=== PATIENT | male | born 1990 | race Caucasian/White ===

== ENCOUNTER 2022-12-06 12:13 | Outpatient (CLI) | payer OTHER, SELFPAY ==
[2022-12-06 13:22] LABS: Anion Gap 9 mmol/L (8-16); Blood Urea Nitrogen 11 mg/dL (9-20); Calcium 9.4 mg/dL (8.4-10.2); Carbon Dioxide 29 mmol/L (22-30); Chloride 103 mmol/L (98-107); Estimated Glomerular Filt Rate > 60; Glucose 103 mg/dL (65-110); Potassium 3.9 mmol/L (3.4-5.0); Sodium 141 mmol/L (137-145)
[2022-12-06 14:03] LABS: Vitamin D 25 Hydroxy 24.7 ng/mL
[2022-12-10 17:50] LABS: Testosterone Free 43.6 pg/mL (35.0-155.0); Testosterone Total 261 ng/dL (250-1100)
== END 2022-12-06 12:14 | disposition home or self-care (01) ==
LOC: ANHLAB 12:15
PROVIDERS: PCP Family Medicine; Visit Provider Nurse Practitioner Family
DX: F41.9 Anxiety disorder, unspecified (principal); F32.A Depression, unspecified; R53.83 Other fatigue; E55.9 Vitamin D deficiency, unspecified; R41.9 Unspecified symptoms and signs involving cognitive functions and awareness
CPT/HCPCS: 36415; 80048; 82306; 84402; 84403; 84443

== ENCOUNTER 2022-12-15 11:30 | Outpatient (CLI) | payer OTHER, SELFPAY ==
[2022-12-18 13:41] LABS: Testosterone Free 80.3 pg/mL (35.0-155.0); Testosterone Total 481 ng/dL (250-1100)
== END 2022-12-15 11:31 | disposition home or self-care (01) ==
LOC: ANHLAB 11:31
PROVIDERS: PCP Family Medicine; Visit Provider Nurse Practitioner Family
DX: R79.89 Other specified abnormal findings of blood chemistry (principal)
CPT/HCPCS: 36415; 84402; 84403

== ENCOUNTER 2022-12-27 08:21 | Outpatient (CLI) | payer OTHER, SELFPAY ==
--- NOTE | 2023-01-16 05:26 | WPDHOMESLEEP ---
Sleep Study - Home Unattended Date of Study: 12/27/22 Ordering Provider: Avery Rock MD Interpreting Provider: Gloria Gatica MD Home Sleep Study Type: Watch PAT Height: 1.91 m Weight: 131.542 kg Body Mass Index: 36.2 Neck Circumference (inches): 18 [place]: 4 Reason for Sleep Study Snoring, daytime hypersomnia; high blood pressure, chest pains and throat pains Sleep History Manjinder Joel is a 32-year-old male with history of depression, anxiety and elevated blood pressure readings who underwent a home sleep test for evaluation of snoring and daytime hypersomnia. 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 He occasionally awakens from sleep short of breath. He rarely awakens at night with heartburn, belching or cough. He frequently snores and snores loud enough for others to complain. He occasionally has trouble sleeping when he has a cold. He occasionally wakes up gasping for breath during the night. He occasionally has breathing problems at night. He frequently sweats excessively at night. He rarely falls asleep during the day. He does not fall asleep involuntarily and never falls asleep while driving. He rarely notices his heart pounding or beating irregularly during the night. He never experiences loss of muscle tone with strong emotion. He rarely feels paralyzed on waking or falling asleep. He frequently experiences vivid dreams upon waking or falling asleep. He occasionally feels afraid of going to sleep. He occasionally has nightmares. He frequently recalls his dreams. He constantly has thoughts racing through his mind. He constantly feels sad or depressed. He constantly feels anxiety or worry about things. He occasionally has muscular tension. He occasionally notices parts of his body jerk. He rarely kicks during the night. He never feels crawling or aching feelings in his legs. He never feels leg pain at night. He does not grind his teeth during sleep and never has morning jaw pain. He constantly feels bothered by pain during the day and is frequently awakened by pain during the night. He frequently wakes up feeling stiff in the morning and frequently wakes up feeling sore and achy in the morning with pain in his neck, spine, or joints. He has anxiety, depression, allergies, sinus issues and throat problems. His main health concern is constant sensation of something in his throat along with back pains and chest pains. He has seen ENT, and has had a tonsillectomy. Normal bedtime varies. He typically gets about 6 to 8 hours of sleep per night. His wake up time is around 9 to 10am on the weekdays and same on the weekends. He typically wakes up around 2 to 3 times per night. He watches television before falling asleep. He does not take naps. A short nap is not refreshing. He is drowsy for 3 hours or longer after waking. Habits: Current tobacco smoker, less than a half pack per day. Drinks 1 caffeinated beverage per day. No alcohol or recreational substances. [facility] Past Medical History Medical History Anxiety disorder, unspecified Apnea BMI 36.0-36.9,adult BMI 39.0-39.9,adult Chest pain Skin lesion of neck Family History Family History Grandparent Family history of malignant neoplasm of breast Family history of heart disease in male family member before age 55 Diabetes mellitus Other Family history of malignant neoplasm Family history of malignant neoplasm of testis Social History Social History Smoking status: Former smoker Alcohol intake: current Medications Home Medications Medication Instructions Recorded Confirmed Type alprazolam 0.25 mg tablet 0.25 mg PO DAILY PRN panic attacks 12/06/22 01/10/23 Rx #20 tabs omeprazole 40 mg capsule,delayed 40 mg PO DAILY 12/06/22 01/10/23 History release bupropion HCl 150 mg 24 h
[2023-01-16 05:55] VITALS: BMI 36.2
== END 2022-12-28 11:52 | disposition home or self-care (01) ==
LOC: ANHCSM 08:22
PROVIDERS: PCP Family Medicine; Visit Provider Family Medicine
DX: R06.81 Apnea, not elsewhere classified (principal); R06.83 Snoring
CPT/HCPCS: 95800

== ENCOUNTER 2024-06-05 13:23 | Outpatient (CLI) | payer OTHER, SELFPAY ==
[2024-06-05 13:55] LABS: Basophils Absolute Auto 0.1 K/mm3 (0.0-0.1); Basophils Percent Auto 0.7 % (0.2-1.2); Eosinophils Absolute Auto 0.2 K/mm3 (0-0.3); Eosinophils Percent Auto 2.1 % (0-4.4); Hematocrit 46.6 % (42.0-52.0); Hemoglobin 15.4 g/dL (14.0-18.0); Immature Granulocyte Absolute 0.03 K/mm3 (0.00-0.031); Immature Granulocyte Percent A 0.4 % (0-0.5); Lymphocytes Absolute Auto 3.08 K/mm3 (0.9-3.2); Lymphocytes Percent Auto 40.5 % (18.3-44.2); Mean Corpuscular Hemoglobin 29.9 pg (26-34); Mean Corpuscular Volume 90.5 fl (80-100); Mean Platelet Volume 9.2 fl (7.4-10.4); Monocytes Absolute Auto 0.6 K/mm3 (0.1-0.6); Monocytes Percent Auto 7.6 % (2.6-8.5); Neutrophils Absolute Auto 3.7 K/mm3 (1.3-6.7); Neutrophils Percent Auto 48.7 % (45.5-73.1); Platelet Count Result 301 k/mm3 (150-375); Red Blood Count 5.15 M/mm3 (4.6-6.20); Red Cell Distribution Width 12.7 % (11.5-14.5); White Blood Count 7.6 K/mm3 (4.5-10.0)
[2024-06-05 14:13] LABS: Alanine Aminotransferase 34 U/L (6-50); Albumin Level 4.6 g/dL (3.5-5.1); Alkaline Phosphatase 56 U/L (38-126); Anion Gap 10 mmol/L (4-12); Aspartate Amino Transferase 23 U/L (17-59); Bilirubin,Total 0.7 mg/dL (0.2-1.3); Blood Urea Nitrogen 17 mg/dL (9-20); Calcium 9.4 mg/dL (8.4-10.2); Carbon Dioxide 30 mmol/L (22-30); Chloride 102 mmol/L (98-107); Cholesterol 212 mg/dL (0-200); Estimated Glomerular Filt Rate > 60; Glucose 95 mg/dL (65-110); HDL Direct 43 mg/dL; Sodium 142 mmol/L (137-145); Triglycerides 248 mg/dL (<150)
[2024-06-05 14:24] LABS: LDL Cholesterol Direct 115 mg/dL
--- OUTSIDE RECORDS SUMMARY | 2024-06-05 14:31 | XMS_ITS | Clinical Summary ---
Author Organization [facility] Address [address] [place] [address] Care Team Providers Care Corn Sheller Operator Name Role Phone Unavailable Primary Care Provider Unavailabl e Source Comments [facility],non-owned Affiliates and Associated Physician Practices is amultiple site organization consisting of ambulatory clinics and hospital sitesin [place], [place], [place] and [place]. This disclosure is being madepursuant to the Care Everywhere program and may not contain all information available regarding this patient. Last updated 17.[facility] [employer] Social History Tobacco Use Types Packs/Day Years Used Date Smoking Tobacco: Never Assessed Sex and Gender Information Value Date Recorded Sex Assigned at Not on file Gender Identity Not on file Sexual Orientation Not on file Plan of Treatment Health Maintenance Due Date Last Done Comments HIV SCREENING 07/23/2006 HEPATITIS C SCREENING 07/19/2009 DTAP/TDAP/TD VACCINES (1 - Tdap) 07/23/2010 HEPATITIS B VACCINE (1 of 3 - 19+ 3-dose series) 07/23/2010 COVID-19 VACCINE ( - 2023-2 5 season) 2023 INFLUENZA VACCINE (#1) 2023 DEPRESSION SCREENING 03/07/2024 ZOSTER VACCINE (1 of 2) 07/23/2041 HIB VACCINE Aged Out No longer eligi ble based on patient's age to complete this topic HPV VACCINE Aged Out No longer eligi ble based on patient's age to complete this topic MENINGOCOCCAL (Group B) VACC INE SHARED DECISION-MAKING Aged Out No longer eligibl e based on patient's age to complete this topic MENINGOCOCCAL GROUPS A/C/Y/W VACCINE Aged Out No longer eligible b ased on patient's age to complete this topic PNEUMOCOCCAL VACCINE Aged Out No long er eligible based on patient's age to complete this topic
--- OUTSIDE RECORDS SUMMARY | 2024-06-05 14:31 | XMS_ITS | Encounter Summary ---
Author Organization [facility] Address [address] [place] [address] Care Team Providers Care Evp Head Of [employer] Experience Strategy Name Role Phone Unavailable Primary Care Provider Unavailabl e Encounter Details Date Type Department Care Team (Late st Contact Info) Description 07/13/2005 Outpatient Historical [facility] Yaneth Neely MD NO ADDRESS ON FILE Er, Authorized P NO ADDRESS ON FILE Major Depressive Disorder, Single Episode, Unspecified (Primary Dx) Social History Tobacco Use Types Packs/Day Years Used Date Smoking Tobacco: Never Assessed Sex and Gender Information Value Date Recorded Sex Assigned at Not on file 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
--- OUTSIDE RECORDS SUMMARY | 2024-06-05 14:31 | XMS_ITS | Clinical Summary ---
Author Organization [facility] Address [address] [place] [address] Care Team Providers Care Engineer Second Assistant Name Role Phone Avery Rock MD Primary Care Provider Allergies Active Allergy Reactions Criticality Noted Date Comments Penicillins Hives Medium 11/02/2022 Active Problems Problem Noted Date Diagnosed Date Chest pain 11/02/2022 Social History Tobacco Use Types Packs/Day Years Used Date Smoking Tobacco: Never Assessed Personal Safety Answer Date Recorded Getting School Help Needed Not on file 11/16 Sex and Gender Information Value Date Recorded Sex Assigned at Not on file 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 Gender Identity Not on file Sexual Orientation Not on file Last Filed Vital Signs Vital Sign Reading Time Taken Comments Blood Pressure 132/77 11/02/2022 9:21 PM CDT Pulse 77 11/02/2022 9:21 PM CDT Temperature 36.9 C (98.5 F) 11/02/2022 6:50 PM CDT Respiratory Rate 18 11/02/2022 9:21 PM CDT Oxygen Saturation 100% 11/02/2022 9:21 PM CDT Inhaled Oxygen Concentration - - Weight 127 kg (280 lb) 11/02/2022 5:06 PM CDT Height - - Body Mass Index - - Plan of Treatment Health Maintenance Due Date Last Done Comments Depression Screening 1991 Hepatitis C Screening 1991 DTaP/Tdap/Td Vaccine (1 - Tdap) 07/23/2002 Varicella Vaccines (1 of 2 - 13+ 2-dose series) 07/23/2004 Hepatitis B Screening 07/23/2009 Regular Well Visit/Exam 18-64 07/23/2009 Influenza Vaccine (#1) 2023 HPV Vaccines Aged Out No longer eligi ble based on patient's age to complete this topic Pneumococcal vaccine <65 Aged Out No longer eligible based on patient's age to complete this topic Insurance [employer] [facility] [place] [facility] [facility] [place] [facility] Care Teams Engineer Second Assistant Relationship Specialty Start Date End Date Avery Rock MD PCP - General Family Medicine 11/02/22
--- OUTSIDE RECORDS SUMMARY | 2024-06-05 14:31 | XMS_ITS | Continuity of Care Document ---
Author Organization [facility] Address [address] [place] [address] Phone Care Team Providers Care Housekeeping Associate Name Role Phone Brown OD, Eliezer Unavailable Unavailable Advance Directives Directive Yes / No Effective Date File Name No Information Encounters Encounter Description Practice Location Reason(s) For Visit Diagnoses Date Provider Providers Copied on Encounter [facility], [address], [place], [place], [id number], [place] tel:[phone] [facility] No Information 9-200 2 Brown OD Eliezer. [address] , [address], [place], [address], [place]. tel:[phone] Family History Family Member Type Diagnosis Age At Onset No Information Payers Payer name Insurance type Covered green party ID Authoriza tion(s) No Information Social History Type Description Quantity Date Captured Comments Sex Male Smoking Status No Information Chief Complaint And Reason For Visit No Information Reason For Referral Reason For Referral No Information History Of Present Illness Encounter Date Complaint History Of Prese nt Illness No Information Functional Status Date Functional Assessmen t No Information Instructions Date Instruction Additional Infor mation No Information Assessments Type Assessment Date No Information Patient Care Teams Name Effective Dates (start - stop) Status Members No Information
--- OUTSIDE RECORDS SUMMARY | 2024-06-05 14:31 | XMS_ITS | Clinical Summary ---
Author Organization [facility] Address [address] 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
--- OUTSIDE RECORDS SUMMARY | 2024-06-05 14:31 | XMS_ITS | Referral Summary ---
Author Organization [facility] Address [address] [place] [address] Care Team Providers Care Board Lining Machine Operator Name Role Phone Avery Rock MD Primary Care Provider [phone] Allergies Active Allergy Reactions Criticality Noted Date [...] on file Legal Sex Male 11:14 PM STUDENT Gender Identity Not on file Sexual Orientation [...] Mass Index - - Plan of Treatment Not on file Insurance [employer] [facility] Care Teams Board Lining Machine Operator Relationship Specialty Start Date End Date Avery Rock MD PCP - General Family Medicine 11/02/22
--- OUTSIDE RECORDS SUMMARY | 2024-06-05 14:31 | XMS_ITS | Encounter Summary ---
Author Organization [facility] Address [address] [place] [address] Care Team Providers Care Disease Management Nurse Name Role Phone Unavailable Primary Care Provider Unavailabl e Encounter Details Date Type Department Care Team (Late st Contact Info) Description 06/20/2020 Lab Requisition [facility] [address] [place] [id number] Avery Rock MD [address] [place] [address] Social History Tobacco Use Types Packs/Day Years Used Date Smoking Tobacco: Never Assessed Sex and Gender Information Value Date Recorded Sex Assigned at Not on file Gender Identity Not on file Sexual Orientation Not on file documented as of this encounter Plan of Treatment Not on file documented as of this encounter Procedures Procedure Name Priority Date/Time Associated Diagnosis Comments DERMATOPATHOLOGY Routine 06/17/2020 12:0 0 AM CDT documented in this encounter Results * DERMATOPATHOLOGY (06/17/2020 12:00 AM CDT) Case Report Dermatopathology Report Case: [id number] Authorizing Provider: Avery Rock MD Collected: 06/17/2020 12:00 AM Ordering Location: [facility] Received: 06/20/2020 09:57 AM Pathologist: Anand Barron MD Specimen: Skin, right neck 1 5:18 PM CDT DERMATOPATHOLOGY LABORATORY Amended Report Date of collection changed from 06/20/20 to 06/17/20. 5:18 PM CDT DERMATOPATHOLOGY LABORATORY Final Diagnosis Specimen A. SKIN, right neck: COMPOUND MELANOCYTIC NEVUS, IRRITATED (D22.4) 1 5:18 PM CDT DERMATOPATHOLOGY LABORATORY Amendment electronically signed by Anand Barron MD on 07/03/2020 at 5:18 PM Clinical History Changing lesion. Check margins. 5:18 PM CDT DERMATOPATHOLOGY LABORATORY Gross Description Specimen A: Received is one formalin filled container labeled with the patient's name and designated right neck. The specimen consists of a shave biopsy measuring [id number], the margin is inked green, bisected. Additional pieces of tissue measuring [id number], [id number] are also submitted in cassette 1. Jar 0. 5:18 PM CDT DERMATOPATHOLOGY LABORATORY Microscopic Description Specimen A. SKIN, right neck: There is melanin pigment in the stratum corneum. There are nests of melanocytes at the dermal-epidermal junction and within the dermis. 5:18 PM CDT DERMATOPATHOLOGY LABORATORY Disclaimer An external and internal positive and negative controls are appropriate for the histochemical, immunohistochemical and immunofluorescence stain(s) in this case (if any), except where stated explicitly. The performance characteristics of the stain(s) cited in this report were developed and its performance characteristic determined by the Dermatopathology Laboratory at [facility], directed by Dr. Bartolo Barron. These tests need not be, and therefore are not, approved by the [place] Food and Drug Administration. The tests are used for clinical purposes. Billing Codes Specimen Charges Stain Charges 63219 1 5:18 PM CDT DERMATOPATHOLOGY LABORATORY Embedded Images 5:18 PM CDT DERMATOPATHOLOGY LABORATORY Pathology/Cytolog y TISSUE SPECIMEN FROM SKIN / Unknown 06/17/2020 06/20/2020 9:57 AM CDT Avery Rock MD LAB - PATHOLOGY/CYTO LOGY ORDERABLES DERMATOPATHOLOGY LABORATORY [facility] - Department of Dermatology [address], [address] [phone] documented in this encounter Visit Diagnoses Not on filedocumented in this encounter
[2024-06-05 14:32] LABS: Vitamin D 25 Hydroxy 18.7 ng/mL
== END 2024-06-05 13:24 | disposition home or self-care (01) ==
LOC: ANHLAB 13:24
PROVIDERS: PCP Family Medicine
DX: E55.9 Vitamin D deficiency, unspecified (principal); Z13.29 Encounter for screening for other suspected endocrine disorder; Z13.220 Encounter for screening for lipoid disorders; Z13.0 Encounter for screening for diseases of the blood and blood-forming organs and certain disorders involving the immune mechanism; Z13.1 Encounter for screening for diabetes mellitus
CPT/HCPCS: 36415; 80053; 80061; 82306; 84443; 85025